=== PATIENT | female | born 1945 | race Caucasian/White ===

== ENCOUNTER → 2017-08-04 | Outpatient (CLI) | payer MEDICARE ==
--- NOTE | 2017-08-04 10:36 | WOMENS IMAGING REPORT ---
EXAM DESCRIPTION: 3D SCREENING MAMMO BILAT COMPLETED DATE/TIME: 08/04/2017 7:28 am REASON FOR STUDY: SCREENING MAMMO Z12.31 ENCNTR SCREEN MAMMOGRAM FOR MALIGNANT NEOPLASM OF MADY COMPARISON: 2012, 2014 TECHNIQUE: Standard craniocaudal and mediolateral oblique views of each breast recorded using digita l acquisition and breast tomosynthesis. LIMITATIONS: None. FINDINGS: No masses, calcifications or architectural distortion. No areas of suspicion. Read with the assistance of CAD. .[facility] - R2 Cenova Version 1.3 .[facility] Imaging - R2 Cenova Version 1.3 .[facility] Imaging - R2 Cenova Version 2.4 .[facility] [place] Cenova Version 2.4 .[facility] - R2 Physiatrist Version 9.2 IMPRESSION: NORMAL MAMMOGRAM. BIRADS 1. BREAST DENSITY: a. The breasts are almost entirely fatty. BIRAD: 1 NEGATIVE RECOMMENDATION: ROUTINE SCREENING COMMENT: The patient has been notified of the results by letter per SA requirements. Additional no tification policies are in place for contacting patient with suspicious or incomplete findings. Quality ID #[id number]: The [employer] recommends an annual screening mammogram for women aged 40 years or over. This facility utilizes a reminder system to ensure that all patients receive reminder letters, and/or direct phone calls for appointments. This includes reminders for routine scr eening mammograms, diagnostic mammograms, or other Breast Imaging Interventions when appropriate. Th is patient will be placed in the appropriate reminder system. The [employer] (ACR) has developed recommendations for screening MRI of the breast s in certain patient populations, to be used in conjunction with mammography. Breast MRI surveillanc e may be appropriate for women with more than 20% lifetime risk of developing breast cancer as deter mined by genetic testing, significant family history of the disease, or history of mantle radiation f or Hodgkins Disease. ACR Practice Guidelines 2008. DBT Technology DBT is a type of tomographic mammography. With conventional mammography, overlapping breast tissue ma y make lesions difficult to detect, even with good compression. DBT uses an x-ray tube that rotates a round the breast, taking images at different angles. These images are then combined to create thin sl ices of the breast that the radiologist can view as a 3D reconstruction. The [employer] unit can perform full-field digital mammograms (2D imaging); or DBT (3D imaging); or both, in a combination mode that quickly performs both the mammogram and the tomosynthesis scan while the breast is still compressed. PQRS 6045F: Fluoroscopic imaging is not utilized for breast tomosynthesis. TECHNICAL DOCUMENTATION: FINDING NUMBER: (1) ASSESSMENT: (1) JOB ID: [id number] [employer]- All Rights Reserved
== END ==
LOC: WI 06:50
PROVIDERS: ATTEND Nurse Practitioner
DX: Z12.31 Encounter for screening mammogram for malignant neoplasm of breast (principal)
CPT/HCPCS: 77063; G0202; 77067

== ENCOUNTER → 2018-10-20 | Outpatient (CLI) | payer MEDICARE ==
--- NOTE | 2018-10-20 10:14 | WOMENS IMAGING REPORT ---
EXAM DESCRIPTION: 3D SCREENING MAMMO BILAT COMPLETED DATE/TIME: 10/20/2018 8:01 am REASON FOR STUDY: ROUTINE BILATERAL SCREENING;Z12.31 Z12.31 ENCNTR SCREEN MAMMOGRAM FOR MALIGNANT N EOPLASM OF MADY COMPARISON: Multiple since 2012 TECHNIQUE: Standard craniocaudal and mediolateral oblique views of each breast recorded using digita l acquisition and breast tomosynthesis. LIMITATIONS: None. FINDINGS: RIGHT BREAST MASSES: No suspicious masses. CALCIFICATIONS: No new or suspicious calcifications. ARCHITECTURAL DISTORTION: None. DEVELOPING DENSITY: None. ASYMMETRY: None noted. OTHER: No other significant findings. LEFT BREAST MASSES: Subcentimeter nodule with irregular borders, left breast laterally at the 3 o'clock position, 12 cm from the nipple. This requires further evaluation with compression magnification views and le ft breast ultrasound CALCIFICATIONS: No new or suspicious calcifications. ARCHITECTURAL DISTORTION: None. DEVELOPING DENSITY: None. ASYMMETRY: None noted. OTHER: No other significant findings. Read with the assistance of CAD. .[facility] - R2 Cenova Version 1.3 .[facility] Imaging - R2 Cenova Version 1.3 .[facility] Imaging - R2 Cenova Version 2.4 .[facility] [place] R2 Cenova Version 2.4 .[facility] - R2 Education Specialist Version 9.2 IMPRESSION: No mammographic/ tomosynthesis evidence for malignancy right breast. Subcentimeter nodule with ill-defined margins left breast 3 o'clock position for which additional lex gnostic compression magnification views and ultrasound recommended. BREAST DENSITY: a. The breasts are almost entirely fatty. BIRAD: 0 Incomplete: Needs Additional Imaging Evaluation and/or prior Mammograms for Comparison. RECOMMENDATION: RECOMMENDED FOLLOW-UP: Additional diagnostic left mammogram and ultrasound The patient will be contacted for additional imaging. COMMENT: The patient has been notified of the results by letter per SA requirements. Additional no tification policies are in place for contacting patient with suspicious or incomplete findings. Quality ID #225: The [employer] recommends an annual screening mammogram for women aged 40 years or over. This facility utilizes a reminder system to ensure that all patients receive reminder letters, and/or direct phone calls for appointments. This includes reminders for routine scr eening mammograms, diagnostic mammograms, or other Breast Imaging Interventions when appropriate. Th is patient will be placed in the appropriate reminder system. The [employer] (ACR) has developed recommendations for screening MRI of the breast s in certain patient populations, to be used in conjunction with mammography. Breast MRI surveillanc e may be appropriate for women with more than 20% lifetime risk of developing breast cancer as deter mined by genetic testing, significant family history of the disease, or history of mantle radiation f or Hodgkins Disease. ACR Practice Guidelines 2008. DBT Technology DBT is a type of tomographic mammography. With conventional mammography, overlapping breast tissue ma y make lesions difficult to detect, even with good compression. DBT uses an x-ray tube that rotates a round the breast, taking images at different angles. These images are then combined to create thin sl ices of the breast that the radiologist can view as a 3D reconstruction. The [employer] unit can perform full-field digital mammograms (2D imaging); or DBT (3D imaging); or both, in a combination mode that quickly performs both the mammogram and the tomosynthesis scan while the breast is still compressed. PQRS 6045F: Fluoroscopic imaging is not utilized for breast tomosynthesis. TECHNICAL DOCUMENTATION: FINDING NUMBER: (1) ASSESSMENT: (1) JOB ID: [id number] [employer]- All Rights Reserved Reading location - IP/workstation name: [email or web address]
== END ==
LOC: WI 07:48
PROVIDERS: ATTEND Nurse Practitioner
DX: Z12.31 Encounter for screening mammogram for malignant neoplasm of breast (principal)
CPT/HCPCS: 77063; 77067

== ENCOUNTER → 2018-11-12 | Outpatient (CLI) | payer MEDICARE ==
--- NOTE | 2018-11-12 10:06 | WOMENS IMAGING REPORT ---
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 LIMITATIONS: None. FINDINGS: BREAST: left MASSES: Mass in the 3 o'clock position 12 cm deep to the nipple persists with cone compression. CALCIFICATIONS: No new or suspicious calcifications. ARCHITECTURAL DISTORTION: None. DEVELOPING DENSITY: None. ASYMMETRY: None noted. OTHER: No other significant findings. Ultrasound demonstrates an irregular hypoechoic lesion with posterior shadowing corresponding to the mammographic finding. IMPRESSION: Suspicious mass left breast. BREAST DENSITY: a. The breasts are almost entirely fatty. BIRAD: 4 Suspicious. Biopsy should be considered. RECOMMENDATION: RECOMMENDED FOLLOW UP: Birads 4: Biopsy should be performed in the absence of clinic al contraindication. SPECIFIC INTERVENTION/IMAGING/CONSULTATION RECOMMENDED:The suspicious finding(s) amenable to US guide d core/vacuum assisted biopsy. COMMUNICATION:The imaging findings were not discussed with the patient. Her referring provider has be en notified of the findings. COMMENT: The patient has been notified of the results by letter per SA requirements. Additional no tification policies are in place for contacting patient with suspicious or incomplete findings. Quality ID #225: The [employer] recommends an annual screening mammogram for women aged 40 years or over. This facility utilizes a reminder system to ensure that all patients receive reminder letters, and/or direct phone calls for appointments. This includes reminders for routine scr eening mammograms, diagnostic mammograms, or other Breast Imaging Interventions when appropriate. Th is patient will be placed in the appropriate reminder system. The [employer] (ACR) has developed recommendations for screening MRI of the breast s in certain patient populations, to be used in conjunction with mammography. Breast MRI surveillanc e may be appropriate for women with more than 20% lifetime risk of developing breast cancer as deter mined by genetic testing, significant family history of the disease, or history of mantle radiation f or Hodgkins Disease. ACR Practice Guidelines 2008. TECHNICAL DOCUMENTATION: FINDING NUMBER: (1) ASSESSMENT: (1) JOB ID: [id number] [employer]- All Rights Reserved Reading location - IP/workstation name: [email or web address]
--- NOTE | 2018-11-12 10:06 | WOMENS IMAGING REPORT ---
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 LIMITATIONS: None. FINDINGS: BREAST: left MASSES: Mass in the 3 o'clock position 12 cm deep to the nipple persists with cone compression. CALCIFICATIONS: No new or suspicious calcifications. ARCHITECTURAL DISTORTION: None. DEVELOPING DENSITY: None. ASYMMETRY: None noted. OTHER: No other significant findings. Ultrasound demonstrates an irregular hypoechoic lesion with posterior shadowing corresponding to the mammographic finding. IMPRESSION: Suspicious mass left breast. BREAST DENSITY: a. The breasts are almost entirely fatty. BIRAD: 4 Suspicious. Biopsy should be considered. RECOMMENDATION: RECOMMENDED FOLLOW UP: Birads 4: Biopsy should be performed in the absence of clinic al contraindication. SPECIFIC INTERVENTION/IMAGING/CONSULTATION RECOMMENDED:The suspicious finding(s) amenable to US guide d core/vacuum assisted biopsy. COMMUNICATION:The imaging findings were not discussed with the patient. Her referring provider has be en notified of the findings. COMMENT: The patient has been notified of the results by letter per SA requirements. Additional no tification policies are in place for contacting patient with suspicious or incomplete findings. Quality ID #225: The [employer] recommends an annual screening mammogram for women aged 40 years or over. This facility utilizes a reminder system to ensure that all patients receive reminder letters, and/or direct phone calls for appointments. This includes reminders for routine scr eening mammograms, diagnostic mammograms, or other Breast Imaging Interventions when appropriate. Th is patient will be placed in the appropriate reminder system. The [employer] (ACR) has developed recommendations for screening MRI of the breast s in certain patient populations, to be used in conjunction with mammography. Breast MRI surveillanc e may be appropriate for women with more than 20% lifetime risk of developing breast cancer as deter mined by genetic testing, significant family history of the disease, or history of mantle radiation f or Hodgkins Disease. ACR Practice Guidelines 2008. TECHNICAL DOCUMENTATION: FINDING NUMBER: (1) ASSESSMENT: (1) JOB ID: [id number] [employer]- All Rights Reserved Reading location - IP/workstation name: [email or web address]
== END ==
LOC: WI 07:33
PROVIDERS: ATTEND Nurse Practitioner
DX: N63.42 Unspecified lump in left breast, subareolar (principal)
CPT/HCPCS: 76642

== ENCOUNTER → 2018-12-03 | Day surgery (SDC) | payer MEDICARE ==
--- NOTE | 2018-12-07 15:55 | WOMENS IMAGING REPORT ---
EXAM DESCRIPTION: U/S BREAST BX; LEFT DIG DX MAMMO NO CHG COMPLETED DATE/TIME: 12/07/2018 2:30 pm; 12/04/2018 8:03 am REASON FOR STUDY: R92.8, ABNORMALITY OF LEFT BREAST ON SCREENING; R92.8, R92.2 S/P US LEFT BREAST BX FOR CLIP PLACEMENT R92.2 INCONCLUSIVE MAMMOGRAM R92.8 OTH ABN AND INCONCLUSIVE FINDINGS ON DX IMAG ING OF MADY COMPARISON: Mammograms 10/20/2018, 11/12/2018 TECHNIQUE: The procedure was discussed with the patient and the patient agreed to proceed. The patient was scanned and the area of interest in the 3 o'clock position 10 cm from the nipple of t he left breast was localized. This correlates with the area of concern on prior imaging studies. Thi s area was targeted for ultrasound-guided core biopsy. After sterile skin prep and 3 mL local lidocaine 1% for skin and deep tissue anesthesia, a 14 gauge c oaxial core biopsy needle was used to obtain several cores of tissue from the lesion. Under ultrasou nd guidance, a ribbon clip was placed in the areas sampled. There were no immediate post-procedure c omplications. MAMMOGRAM: Post-procedure two view mammogram was acquired in the digital mammogram suite. The clip wa s in the expected location. No significant hematoma. Pathology yields a diagnosis of invasive lobular carcinoma Pathology is concordant. LIMITATIONS: None. FINDINGS: Ultrasound guided breast biopsy as described above. POST PROCEDURE MAMMOGRAMS FOR MARKER PLACEMENT: Yes IMPRESSION: ULTRASOUND-GUIDED CORE BIOPSY OF THE LEFT BREAST YIELDS A DIAGNOSIS OF INVASIVE LOBULAR CARCINOMA BI-RADS 6 Known biopsy-proven malignancy. Appropriate action should be taken. COMMENT: PATIENT HAS A FOLLOW-UP APPOINTMENT SCHEDULED AT ON [facility] Friday12/11/[address] KIRKLAND COMMUNICATION: Results of the biopsy was discussed with the patient. She understands this is a malig nant diagnosis which requires further therapy, and requested that I would make her an appointment wi th the surgeons as soon as possible. Patient medication list reviewed: Yes- Quality ID# [id number]:Eligible professional attests to documenting i n the medical record they obtained, updated, or reviewed the patient's current medications. TECHNICAL DOCUMENTATION: JOB ID: [id number] [employer]- All Rights Reserved Reading location - IP/workstation name: [email or web address]
--- NOTE | 2018-12-07 15:55 | WOMENS IMAGING REPORT ---
EXAM DESCRIPTION: U/S BREAST BX; LEFT DIG DX MAMMO NO CHG COMPLETED DATE/TIME: 12/07/2018 2:30 pm; 12/04/2018 8:03 am REASON FOR STUDY: R92.8, ABNORMALITY OF LEFT BREAST ON SCREENING; R92.8, R92.2 S/P US LEFT BREAST BX FOR CLIP PLACEMENT R92.2 INCONCLUSIVE MAMMOGRAM R92.8 OTH ABN AND INCONCLUSIVE FINDINGS ON DX IMAG ING OF MADY COMPARISON: Mammograms 10/20/2018, 11/12/2018 TECHNIQUE: The procedure was discussed with the patient and the patient agreed to proceed. The patient was scanned and the area of interest in the 3 o'clock position 10 cm from the nipple of t he left breast was localized. This correlates with the area of concern on prior imaging studies. Thi s area was targeted for ultrasound-guided core biopsy. After sterile skin prep and 3 mL local lidocaine 1% for skin and deep tissue anesthesia, a 14 gauge c oaxial core biopsy needle was used to obtain several cores of tissue from the lesion. Under ultrasou nd guidance, a ribbon clip was placed in the areas sampled. There were no immediate post-procedure c omplications. MAMMOGRAM: Post-procedure two view mammogram was acquired in the digital mammogram suite. The clip wa s in the expected location. No significant hematoma. Pathology yields a diagnosis of invasive lobular carcinoma Pathology is concordant. LIMITATIONS: None. FINDINGS: Ultrasound guided breast biopsy as described above. POST PROCEDURE MAMMOGRAMS FOR MARKER PLACEMENT: Yes IMPRESSION: ULTRASOUND-GUIDED CORE BIOPSY OF THE LEFT BREAST YIELDS A DIAGNOSIS OF INVASIVE LOBULAR CARCINOMA BI-RADS 6 Known biopsy-proven malignancy. Appropriate action should be taken. COMMENT: PATIENT HAS A FOLLOW-UP APPOINTMENT SCHEDULED AT ON [facility] Friday12/11/[address] KIRKLAND COMMUNICATION: Results of the biopsy was discussed with the patient. She understands this is a malig nant diagnosis which requires further therapy, and requested that I would make her an appointment wi th the surgeons as soon as possible. Patient medication list reviewed: Yes- Quality ID# [id number]:Eligible professional attests to documenting i n the medical record they obtained, updated, or reviewed the patient's current medications. TECHNICAL DOCUMENTATION: JOB ID: [id number] [employer]- All Rights Reserved Reading location - IP/workstation name: [facility]
== END ==
LOC: EDSTATUS 07:42 → WI 12:16
PROVIDERS: ATTEND Nurse Practitioner
DX: C50.912 Malignant neoplasm of unspecified site of left female breast (principal); R92.2 Inconclusive mammogram; R92.8 Other abnormal and inconclusive findings on diagnostic imaging of breast
CPT/HCPCS: 19083; 88305; 88341; 88342

== ENCOUNTER 2019-01-06 07:09 | Day surgery (SDC) | payer MEDICARE ==
--- NOTE | 2018-12-30 09:52 | EKG REPORT ---
SEVERITY:- BORDERLINE ECG - SINUS OR ECTOPIC ATRIAL RHYTHM BORDERLINE T ABNORMALITIES, INFERIOR LEADS : Confirmed by: Dewayne Rouse 30-Dec-2018 09:52:22
--- NOTE | 2018-12-30 10:12 | RADIOLOGY REPORT (SQ) ---
EXAM DESCRIPTION: CHEST PA/LATERAL COMPLETED DATE/TIME: 12/30/2018 9:52 am REASON FOR STUDY: PRE-OP COMPARISON: 03/05/2014 EXAM PARAMETERS: NUMBER OF VIEWS: two views TECHNIQUE: Digital Frontal and Lateral radiographic views of the chest acquired. RADIATION DOSE: NA LIMITATIONS: none FINDINGS: LUNGS AND PLEURA: No new airspace disease, pleural effusion or pneumothorax. MEDIASTINUM AND HILAR STRUCTURES: Unchanged widening of the right paratracheal stripe compared to 03/05, likely vascular. No new discrete masses. HEART AND VASCULAR STRUCTURES: Enlarged cardiac silhouette, stable. Aortic atherosclerosis. BONES: No acute findings. HARDWARE: None in the chest. OTHER: No other significant finding. IMPRESSION: No evidence of acute cardiopulmonary process. TECHNICAL DOCUMENTATION: JOB ID: [id number] [employer]- All Rights Reserved Reading location - IP/workstation name: [email or web address]
[2018-12-30 10:46] LABS: HEMATOCRIT 40.9 % (36.0-47.0); HEMOGLOBIN 13.7 g/dL (12.0-15.5); MEAN CORPUSCULAR HEMOGLOBIN 28.1 pg (27.0-33.4); MEAN CORPUSCULAR HGB CONC 33.6 g/dL (32.0-36.0); MEAN CORPUSCULAR VOLUME 84 fl (80-97); PLATELET COUNT 244 10^3/uL (150-450); RED BLOOD COUNT 4.88 10^6/uL (3.72-5.28); RED CELL DISTRIBUTION WIDTH 14.8 % (11.5-14.0); WHITE BLOOD COUNT 8.8 10^3/uL (4.0-10.5)
[2018-12-30 11:19] LABS: ANION GAP 10 (5-19); BLOOD UREA NITROGEN 18 mg/dL (7-20); CALCIUM 10.2 mg/dL (8.4-10.2); CARBON DIOXIDE 34 mmol/L (22-30); CHLORIDE 98 mmol/L (98-107); GLUCOSE 103 mg/dL (75-110); POTASSIUM 4.6 mmol/L (3.6-5.0); SODIUM 142.4 mmol/L (137-145)
[~2019-01-06 07:09] MED LIST: ACETAMINOPHEN 1,000 MG/100 ML RTUPB IV ONE; CEFAZOLIN 1 GM/D5W RTU 1 GM/50 ML RTUPB IV PRN; FENTANYL CITRATE INJ/PF 100 MCG/2 ML AMPUL ONE; HYDROMORPHONE HCL INJ/PF 2 MG/ML AMPULE ONE; LACTATED RINGERS 1000 ML IV PRN; LIDOCAINE 0.5% INJ-PF (5 MG/ML) 50 ML SDV SUBCUT PRN; LIDOCAINE 4% TRANSPARENT DRESSING 5 GM KIT TP PRN; MIDAZOLAM 2 MG/2 ML INJ ONE; PROPOFOL INJ 200 MG/20 ML VIAL IV ONE
[2019-01-06] MEDS ORDERED: MICROFIBRILLAR COLLAGEN 1 GM PACK ONE (07:25)
[2019-01-06] MEDS ORDERED: LIDOCAINE 4% TRANSPARENT DRESSING 5 GM KIT ONE (07:25)
[2019-01-06] MEDS ORDERED: LIDOCAINE 1%/EPINEPHRINE INJ 20 ML VIAL ONE (07:26)
[2019-01-06] MEDS ORDERED: METHYLENE BLUE 50 MG/10 ML AMPULE ONE (07:26)
--- NOTE | 2019-01-06 11:43 | RADIOLOGY REPORT (SQ) ---
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 The route of agent administration: Subcutaneous in the skin, intradermal periareolar left breast. TECHNIQUE: The skin of the left breast was prepped in sterile fashion. The radiopharmaceutical was administered in equally divided doses in the periareolar breast. LIMITATIONS: None. FINDINGS: Images demonstrate activity at the injection site. IMPRESSION: ADMINISTRATION OF RADIOPHARMACEUTICAL FOR SENTINEL LYMPH NODE EVALUATION. TECHNICAL DOCUMENTATION: JOB ID: [id number] [employer]- All Rights Reserved Reading location - IP/workstation name: [email or web address]
[2019-01-06] MEDS ORDERED: CEFAZOLIN 1 GM/D5W RTU 1 GM/50 ML RTUPB IV ONE (12:06)
[2019-01-06] MEDS ORDERED: PROMETHAZINE HCL INJ 25 MG/1 ML VIAL IV PRN (12:57)
[2019-01-06] MEDS ORDERED: MEPERIDINE HCL/PF INJ 25 MG/1 ML DISP.SYRIN IV PRN (12:57)
[2019-01-06] MEDS ORDERED: MORPHINE SULFATE 10 MG/ML INJ IV PRN (12:57)
[2019-01-06] MEDS ORDERED: FENTANYL CITRATE INJ/PF 100 MCG/2 ML AMPUL IV PRN ×3 (12:57)
[2019-01-06] MEDS ORDERED: DIPHENHYDRAMINE HCL 50 MG/ML VIAL IV PRN (12:57)
--- NOTE | 2019-01-06 14:02 | Operative Report ---
Operative Report DATE OF SURGERY: 01/06/19 PREOPERATIVE DIAGNOSIS: Invasive lobular carcinoma, left breast, status post co re biopsy with clip marker placement POSTOPERATIVE DIAGNOSIS: Same OPERATION: 1. Ultrasound directed left breast lumpectomy. 2. [place] lymph node biopsy left axilla x2 SURGEON: JATIN COURTNEY MEDICAL TRANSPORT SPECIALIST: DALILA SANTOS ANESTHESIA: GA TISSUE REMOVED OR ALTERED: Left breast lumpectomy; 2 sentinel lymph nodes COMPLICATIONS: None ESTIMATED BLOOD LOSS: Scant INTRAOPERATIVE FINDINGS: See below PROCEDURE: Patient was seen in the preop holding area where the left breast was exposed. The patient previously undergone technetium 99 sulfur colloid lymphoscintigraphy. Bedside neoprobe Assessment demonstrated increased uptake in the left axilla consistent with successful sentinel lymph node mapping.. The patient was marked, then taken to the main operating room where general anesthesia was induced. Left arm was abducted, left breast taped medially, and blue dye, 3 cc total, methylene blue, injected into the intradermal space left breast areole or border 2 o'clock position. Left breast was massaged. Left breast and left axilla prepped draped sterile fashion. Surgical plan surgical timeout were conducted. Using ultrasonography real-time, the left breast tumor with clip marker was identified with a variable frequency linear transducer, 3 o'clock position, 8-9 cm from the nipple. Skin was anesthetized with 1% plain line again, and a horizontally oriented elliptical incision with a small sliver skin was made with a #10 blade. Using ultrasound real-time as a guide, a lumpectomy excisional biopsy was performed encompassing the tumor which was vertically oriented approximately 2 cm in length, with a clip marker present. Once the lumpectomy specimen was ex vivo, sutures were placed in the 12 o'clock position, short, and the 3 o'clock position long. Specimen was radiographed using the portable radiographic machine, and the specimen was felt to contain the tumor, and the clip marker. This was confirmed by Dr. Yvonne Bourgeois, radiologist. The specimen was sent for final pathologic analysis to the pathology department We now directed our attention to the left axilla. Point of maximum radiographic activity was detected in the low axilla. The skin was anesthetized with 1% plain lidocaine. A small 3 cm incision was made over the point of maximum activity. Subcutaneous tissue divided with electrocautery. 2 sentinel lymph nodes were harvested both blue both hot. There are both level 1 nodes. Grossly they appeared normal. The first sentinel lymph node had an ex vivo count of 3322 and the second sentinel lymph node had an in vivo count of 1865 and an ex vivo count of 6793. Background counts were negligible. We felt the operation was complete. Wound check for bleeding there was none. Wound was closed in layers with 3-0 Vicryl and Dermabond glue. Patient tolerated the procedure well, extubated, taken to recovery room stable condition. The physician procurement assistant, Ms. Johns, provided assistance during this case by: Assisting with retracting tissue, instillation of local anesthesia and closure of skin incisions.
[2019-01-06] MEDS ORDERED: OXYCODONE-ACETAMINOPHEN 5-325 MG TABLET PO PRN (14:16)
--- NOTE | 2019-01-06 14:16 | Discharge Summary ---
Discharge Summary (SDC) - Discharge Final Diagnosis: Left breast cancer Date of Surgery: 01/06/19 Discharge Date: 01/06/19 Condition: Good Treatment or Instructions: [facility] [address], [place] [address] Care Instructions Following Your Lumpectomy Activities: Resume normal activities when you feel comfortable. It is best to remain as active as possible to speed your recovery. It is common to experience some fatigue after surgery and you may find that short naps are helpful. Avoid strenuous activity such as weight lifting, tennis, etc at your surgical site for two weeks. Perform gentle arm exercises daily and do not favor your operative arm to due increased risk of mobility issues postoperatively. No driving for 7 days after surgery. Do not drive if you are taking pain medication other than Tylenol or Ibuprofen. No swimming, tub baths or soaking in a hot tub for 4 weeks. There are no dietary restrictions. Do not smoke as this impairs wound healing. Surgical Site care: You may shower in 24 hours. Leave skin glue intact. Wash the wound with soap and water using your hands. Do not scrub the incision. Pat the area dry with a towel. You do not need to recover the wound although some patients find that they feel more comfortable using a light dressing for a few days to absorb any minimal drainage which may occur. If you use a dressing in this manner change it at least every day. Do not use heating pad or apply an ice pack to the operative site. You may apply deodorant if you are careful to avoid getting it on the wound itself. Medications: Take Toradol one pill by mouth every six hours as needed for pain. You may take Tylenol as needed for breakthrough pain. Do not exceed the max dose for Tylenol. You may experience constipation after surgery while taking pain medications. If using a narcotic on a regular basis, take a stool softener such as Colace twice a day. It is helpful to stay hydrated by drinking lots of fluids. Walking is also helpful and is good exercise after surgery. If you need extra help, use Milk of Magnesia according to the directions on the package. Follow-up: Call our office at to make a follow-up appointment in 10-14 days. Your doctor will call to discuss the pathology report with you as soon as it is available. Concerns: If you had a sentinel lymph node biopsy with your mastectomy, your urine may have a greenish discoloration. This is normal and will resolve as the blue dye slowly leaves your system. If you notice significant leakage around the drains, this is not normal. The drains may be clogged. Please call our office to come in immediately for the drains to be checked. Some bruising may occur and will go away over time. If you have a fever of 101.5 or greater, chills, redness at the incision site, excessive drainage from your wound or severe pain not relieved by pain medication, call your doctor. A physician is available 24 hours a day 7 days a week in addition to regular office hours. If problems arise after normal office hours please call the hospital at . Please call if you have any questions or concerns. Prescriptions: Ketorolac Tromethamine [Toradol 10 mg Tablet] 10 mg PO Q6HP PRN #20 tablet PRN Reason: Referrals: LOS WERNER FNP [Primary Care Provider] - Discharge Diet: As Tolerated Discharge Activity: Balance Activity w/Rest, Walk Frequently Report the Following to Your Physician Immediately: Increase in Pain, Fever over 101 Degrees, Unusual Bleeding, Redness, Swelling, Warmth, Increased Soreness, Drainage-Foul Smelling
[2019-01-06] MEDS ORDERED: KETOROLAC TROMETHAMINE 60 MG/2 ML SDV ONE (15:22)
[2019-01-06] MEDS ORDERED: ONDANSETRON HCL INJ/PF 4 MG/2 ML SDV ONE (15:22)
[2019-01-06] MEDS ORDERED: DEXAMETHASONE SOD PHOSPHATE INJ 4 MG/1 ML VIAL ONE (15:22)
[2019-01-06] MEDS ORDERED: ONDANSETRON 4 MG TAB.RAPDIS ONE (16:17)
[2019-01-06 16:50] VITALS: BP 140/69
== END 2019-01-06 16:40 | disposition home or self-care (01) ==
LOC: OROUT 07:09
PROVIDERS: ATTEND Surgery
DX: C50.919 Malignant neoplasm of unspecified site of unspecified female breast (principal); Z88.0 Allergy status to penicillin; Z88.2 Allergy status to sulfonamides; I10 Essential (primary) hypertension; E78.00 Pure hypercholesterolemia, unspecified; K21.9 Gastro-esophageal reflux disease without esophagitis; Z79.82 Long term (current) use of aspirin; Z79.899 Other long term (current) drug therapy; E66.9 Obesity, unspecified; Z68.32 Body mass index [BMI] 32.0-32.9, adult; C50.912 Malignant neoplasm of unspecified site of left female breast
CPT/HCPCS: 93010; 93005; 36415 ×2; 84132; 85027; 80048; 88342 ×2; 88305 ×2; 88307 ×2; 71046; 78195; 76098; 19301; 38500; A9520; J2250; J0690; J1100; J1885; A9270; J3490 ×2; J1170; J2405; J2704; J0131; Q9968; 1610; J3010; S0119

== ENCOUNTER → 2019-11-08 | Outpatient (CLI) | payer MEDICARE ==
--- NOTE | 2019-11-08 09:40 | WOMENS IMAGING REPORT ---
EXAM DESCRIPTION: 3D DX MAMMO BILAT COMPLETED DATE/TIME: 11/08/2019 9:19 am REASON FOR STUDY: C50.412 MALIGNANT NEOPLASM OF UPPER-OUTER QUADRANT OF LEFT FEMALE BREAST C50.412 MALIG NEOPLASM OF UPPER-OUTER QUADRANT OF LEFT FEMAL COMPARISON: Digital tomosynthesis bilateral screening mammograms dated 10/20/2018, 08/04/2017 and dig ital bilateral screening mammogram dated 01/30/2016. Digital diagnostic left breast mammogram 12/03/19 and 11/12/2018. EXAM PARAMETERS: Standard craniocaudal and mediolateral oblique views of each breast recorded using digital acquisition and breast tomosynthesis. Read with the assistance of CAD: .[employer] Pressure Tank Operator Version 9.2 LIMITATIONS: None. FINDINGS: RIGHT BREAST MASSES: No suspicious masses. CALCIFICATIONS: No new or suspicious calcifications. ARCHITECTURAL DISTORTION: None. ASYMMETRY: None noted. OTHER: No other significant findings. LEFT BREAST MASSES: No suspicious masses. CALCIFICATIONS: No new or suspicious calcifications. ARCHITECTURAL DISTORTION: Stable post surgical changes in the upper outer quadrant at the site of pr evious lumpectomy. ASYMMETRY: None noted. OTHER: No other significant finding. IMPRESSION: 1. Post surgical changes at the site of previous lumpectomy left breast since the previ ous examinations. 2. No mammographic evidence of malignancy. BREAST DENSITY: b. There are scattered areas of fibroglandular density. BIRAD: ASSESSMENT: 2 Benign findings. RECOMMENDATION: 1. Routine lumpectomy protocol. COMMENT: The patient has been notified of the results by letter per MQSA requirements. Additional no tification policies are in place for contacting patient with suspicious or incomplete findings. Quality ID #225: The [employer] recommends an annual screening mammogram for women aged 40 years or over. This facility utilizes a reminder system to ensure that all patients receive reminder letters, and/or direct phone calls for appointments. This includes reminders for routine scr eening mammograms, diagnostic mammograms, or other Breast Imaging Interventions when appropriate. Th is patient will be placed in the appropriate reminder system. TECHNICAL DOCUMENTATION: FINDING NUMBER: (1) ASSESSMENT: (1) JOB ID: [id number] [employer]- All Rights Reserved Reading location - IP/workstation name: [email or web address]
== END ==
LOC: WI 08:40
PROVIDERS: ATTEND Nurse Practitioner
DX: C50.412 Malignant neoplasm of upper-outer quadrant of left female breast (principal)
CPT/HCPCS: 77066; G0279; 77062

== ENCOUNTER → 2020-11-20 | Outpatient (CLI) | payer MEDICARE ==
--- NOTE | 2020-11-21 11:21 | WOMENS IMAGING REPORT ---
EXAM DESCRIPTION: 3D DX MAMMO BILAT IMAGES COMPLETED DATE/TIME: 11/20/2020 7:57 am REASON FOR STUDY: C50.412 C50.412 MALIG NEOPLASM OF UPPER-OUTER QUADRANT OF LEFT FEMAL COMPARISON: Priors dating back to 2015 EXAM PARAMETERS: Standard craniocaudal and mediolateral oblique views of each breast recorded using digital acquisition and breast tomosynthesis. True lateral view left breast. Read with the assistance of CAD: .[employer] - [employer] Emission Technician Version 9.2 LIMITATIONS: None. FINDINGS: RIGHT BREAST MASSES: No suspicious masses. CALCIFICATIONS: No new or suspicious calcifications. ARCHITECTURAL DISTORTION: None. ASYMMETRY: None noted. OTHER: No other significant findings. LEFT BREAST MASSES: No suspicious masses. CALCIFICATIONS: No new or suspicious calcifications. ARCHITECTURAL DISTORTION: Stable status post lumpectomy. ASYMMETRY: None noted. OTHER: No other significant finding. IMPRESSION: Stable mammographic pattern. BREAST DENSITY: b. There are scattered areas of fibroglandular density. BIRAD: ASSESSMENT: 2 Benign findings. RECOMMENDATION: RECOMMENDED FOLLOW UP: Annual mammographic follow-up. SPECIFIC INTERVENTION/IMAGING/CONSULTATION RECOMMENDED:No additional intervention/ imaging/consultati on needed at this time. COMMUNICATION:The imaging findings were not discussed with the patient. Her referring provider has be en notified of the findings. COMMENT: The patient has been notified of the results by letter per [place] requirements. Additional no tification policies are in place for contacting patient with suspicious or incomplete findings. Quality ID #225: The [employer] recommends an annual screening mammogram for women aged 40 years or over. This facility utilizes a reminder system to ensure that all patients receive reminder letters, and/or direct phone calls for appointments. This includes reminders for routine scr eening mammograms, diagnostic mammograms, or other Breast Imaging Interventions when appropriate. Th is patient will be placed in the appropriate reminder system. TECHNICAL DOCUMENTATION: FINDING NUMBER: (1) ASSESSMENT: (1) JOB ID: [id number] 2010 [employer]- All Rights Reserved Reading location - IP/workstation name: [email or web address]
== END ==
LOC: WI 07:41
PROVIDERS: ATTEND Physician Assistant Medical
DX: C50.412 Malignant neoplasm of upper-outer quadrant of left female breast (principal)
CPT/HCPCS: 77066; G0279; 77062